=== PATIENT | male | born 2005 | race Two or more races ===

== ENCOUNTER 2023-04-21 20:22 | Emergency (ER) | payer OTHER ==
[~2023-04-21] VITALS: Ht 165.1 cm; Wt 64.4 kg
[2023-04-21] MEDS ORDERED: BENADRYL ALLERG25 MG (20:39)
[2023-04-21] MEDS ORDERED: TRAZODONE HCL150 MG (20:39)
[2023-04-21] MEDS ORDERED: ZYPREXA5 MG (20:39)
[2023-04-21 22:08] LABS: HEMATOCRIT 50.4 % (39.0-48.0); MEAN CELL VOLUME 78.7 fL (80.0-100.00); MEAN CORPUSCULAR HEMOGLOBIN 26.5 pg (27.00-32.0); MEAN CORPUSCULAR HGB CONC 33.7 g/dl (32.0-36.0); PLATELET COUNT 240 K/uL (150-450); RED BLOOD COUNT 6.41 M/uL (4.00-6.00); RED CELL DISTRIBUTION WIDTH 14.3 % (11.5-14.5)
[2023-04-21 22:19] LABS: ALBUMIN 4.9 gm/dL (3.4-5.0); BILIRUBIN TOTAL 2.08 mg/dL (0.3-1.2); CALCIUM 10.1 mg/dL (8.5-10.1); CREATININE SERUM 1.26 mg/dL (0.70-1.30); GFR 73.73; GLOBULINA 4.1 G/DL (2.4-3.5); POTASSIUM 3.75 mEq/L (3.5-5.1)
[2023-04-21 23:47] LABS: COCAINE NEGATIVE (NEGATIVE); METHADONE NEGATIVE (NEGATIVE); OPIATES NEGATIVE (NEGATIVE); THC ( Cannabinoids) NEGATIVE (NEGATIVE)
== END 2023-04-21 21:53 | disposition left against medical advice (07) ==
LOC: EMR PED 20:22
PROVIDERS: Emergency Medicine Pediatric Emergency Medicine
DX: S40.811A Abrasion of right upper arm, initial encounter (principal); S80.811A Abrasion, right lower leg, initial encounter; F99 Mental disorder, not otherwise specified; F41.9 Anxiety disorder, unspecified; T14.8XXA Other injury of unspecified body region, initial encounter